=== PATIENT | female | born 1995 ===

== ENCOUNTER 2022-01-09 08:00 | Outpatient (RCR) | payer OTHER, SELFPAY | END 2022-01-09 08:53 | disposition home or self-care (01) | LOC: HO.PT 08:00 | PROVIDERS: PCP Internal Medicine; Visit Provider Obstetrics & Gynecology Reproductive Endocrinology | DX: N80.9 Endometriosis, unspecified (principal); G89.29 Other chronic pain; N94.819 Vulvodynia, unspecified | CPT/HCPCS: 97112; 97140; 97161 ==